=== PATIENT | male | born 1955 | race African-American/Black ===

== ENCOUNTER 2017-02-04 14:46 | Emergency (ER) | payer BC, MEDICAID ==
[~2017-02-04] VITALS: Ht 172.7 cm; Wt 90.7 kg
[~2017-02-04 14:46] MED LIST: ACETAMINOPHEN-1 EAC1 ORAL; CYCLOBENZAPRINE10 MG ORAL; IBUPROFEN600 MG ORAL
[2017-02-04] MEDS ORDERED: Methocarbamol 750mg tab ORAL ONE (15:00)
[2017-02-04] MEDS ORDERED: ROBAXIN-750750 MG PO (15:04)
--- NOTE | 2017-02-04 15:09 | Emergency Room Report ---
History of Present Illness General Chief Complaint: Lower Back Pain or Injury Source: Patient Present Illness HPI 61YOM walk-in with 4 days of left lower back strain after known exacerbating event lifting heavy suitcase at [employer] where he works Took molixicam he has at home ONCE with improvement hasnt taken any thing else since thought he was constipated, gave miralax which "cleaned him out." But still with LBP so came to ED Denies lower ext weakness, urinary/fecal incontinence No history of LBP Denies chest pain, SOB, abd pain, nausea/vomiting, dysuria, fever/chills Allergies: Coded Allergies: No Known Allergies (Verified Allergy, Unknown, 05/31/10) Patient History Past Medical History: none Past Surgical History: none Pertinent Family History: none Social History: Denies: smoking, alcohol use, drug use Immunizations: UTD Reviewed Nursing Documentation: PMH: Agreed, PSxH: Agreed Nursing Documentation-PMH Past Medical History: No History, Except For Hx Cardiac Problems: Yes - STENT X 1 IN 2010 Hx Hypertension: Yes Hx Pacemaker: No Hx Asthma: No Hx COPD: No Hx Diabetes: No Hx Cancer: No Hx Gastrointestinal Problems: No Hx Dialysis: No History Of Psychiatric Problem: No Hx Neurological Problems: No Hx Cerebrovascular Accident: No Hx Seizures: No Review of Systems All Other Systems: negative except mentioned in HPI Physical Exam Vital Signs Date Time Temp Pulse Resp B/P (MAP) Pulse Ox O2 Delivery O2 Flow Rate FiO2 02/04/17 14:49 97.0 59 16 136/90 99 Room Air Sp02 EP Interpretation: reviewed, normal General Appearance: normal inspection, well appearing, no apparent distress, alert, GCS 15, non-toxic Head: normocephalic, atraumatic Eyes: bilateral eye PERRL, bilateral eye EOMI ENT: normal ENT inspection, hearing grossly normal, normal voice Neck: normal inspection, full range of motion, supple, no bony tend Respiratory: normal inspection, lungs clear, normal breath sounds, no respiratory distress, no retraction, no wheezing Cardiovascular #1: regular rate, rhythm, no edema Gastrointestinal: normal inspection, normal bowel sounds, non tender, soft, no guarding, no hernia Genitourinary: no CVA tenderness Musculoskeletal: normal inspection, back normal, normal range of motion, Kayla' s Sign negative, other - Mild left lower paravertebral ttp Neurologic: normal inspection, alert, oriented x3, responsive, balance truing inspector III-XII nml as tested, motor strength/tone normal, speech normal Psychiatric: normal inspection, judgement/insight normal, mood/affect normal Skin: normal inspection, normal color, no rash Medical Decision Making Diagnostic Impression: Primary Impression: Low back pain Qualified Codes: M54.5 - Low back pain ER Course LBP Traumatic exacerbating event No concerning factors for cord compression VSS, afebrile Rx Robaxin to take with molaxicam Last Vital Signs Date Time Temp Pulse Resp B/P (MAP) Pulse Ox O2 Delivery O2 Flow Rate FiO2 02/04/17 14:49 97.0 59 16 136/90 99 Room Air Status: improved Disposition: HOME, SELF-CARE Condition: Improved Scripts Methocarbamol* (ROBAXIN-750*) 750 Mg Tablet 750 MG PO TID for 7 Days, #30 TAB 0 Refills Prov: ARMAAN MENDOZA M.D. 02/04/17 Referrals: [facility],REFERRING (PCP) Patient Instructions: Lumbosacral Strain Additional Instructions: - Take Robaxin with the Meloxicam you already have TOGETHER every 8 hours with food as needed for pain - Apply ice or eat as needed for pain - Stretch your back as often as you can and try to walk to keep muscles loose ARMAAN MENDOZA M.D. Feb 04, 2017 15:09
[2017-02-04] MEDS ORDERED: Ketorolac 60mg Inj IM ONE (15:15)
[2017-02-04 15:30] VITALS: BP 138/90
== END 2017-02-04 15:35 | disposition home or self-care (01) ==
LOC: EMR 15:01
DX: M54.5 Low back pain (principal); Z98.62 Peripheral vascular angioplasty status; I10 Essential (primary) hypertension
CPT/HCPCS: 96372; 99284

== ENCOUNTER 2017-02-05 19:24 | Emergency (ER) | payer MEDICAID ==
[~2017-02-05] VITALS: Ht 172.7 cm; Wt 89.8 kg
[~2017-02-05 19:24] MED LIST changes: +ROBAXIN-750750 MG PO
[2017-02-05 19:45] VITALS: BP 125/86
[2017-02-05] MEDS ORDERED: Ketorolac 60mg Inj IM ONE (20:00)
[2017-02-05 20:25] VITALS: BP 125/86
--- NOTE | 2017-02-05 20:57 | Emergency Room Report ---
History of Present Illness General Chief Complaint: Lower Back Pain or Injury Source: Patient Present Illness HPI The patient is a 61-year-old male presenting for lower back pain. He was seen in this emergency Department yesterday for the same complaint. He states that he was lifting heavy objects at work when he felt sharp pain in the left lower back 4 days prior. Pain has continued and is an 8/10 dull ache now to the left lower back. Worse with movement such as bending over. He denies any new injury. He denies any numbness or tingling. He has been using Robaxin at home and states that pain has decreased. He denies any other symptoms including Allergies: Coded Allergies: No Known Allergies (Verified Allergy, Unknown, 05/31/10) Patient History Past Medical History: see triage record Pertinent Family History: none Reviewed Nursing Documentation: PMH: Agreed, PSxH: Agreed Nursing Documentation-PMH Past Medical History: No History, Except For Hx Cardiac Problems: Yes - STENT X 1 IN 2010 Hx Hypertension: Yes Hx Pacemaker: No Hx Asthma: No Hx COPD: No Hx Diabetes: No Hx Cancer: No Hx Gastrointestinal Problems: No Hx Dialysis: No Hx Neurological Problems: No Hx Cerebrovascular Accident: No Hx Seizures: No Review of Systems All Other Systems: negative except mentioned in HPI Physical Exam Vital Signs Date Time Temp Pulse Resp B/P (MAP) Pulse Ox O2 Delivery O2 Flow Rate FiO2 02/05/17 19:34 97.9 65 17 125/86 99 Room Air Sp02 EP Interpretation: reviewed, normal General Appearance: no apparent distress, alert, GCS 15, non-toxic Head: normocephalic, atraumatic Eyes: bilateral eye normal inspection, bilateral eye PERRL Respiratory: chest non-tender, lungs clear, normal breath sounds, speaking full sentences Gastrointestinal: normal bowel sounds, non tender, soft, non-distended, no guarding, no rebound Musculoskeletal: back normal, normal range of motion, tender - TTP the L lumbar paraspinal muscles Neurologic: alert, oriented x3, responsive, motor strength/tone normal, sensory intact, speech normal Psychiatric: judgement/insight normal, memory normal, mood/affect normal, no suicidal/homicidal ideation Skin: normal color, no rash, warm/dry, well hydrated Medical Decision Making PA Attestation Dr. Queen is my supervising physician. Patient management was discussed with my supervising physician Diagnostic Impression: Primary Impression: Muscle strain ER Course The patient is a 61 yo M presenting for back pain Ddx considered include but not limited to lumbar strain, degenerative disease, epidural abscess, cauda equina, chronic pain, narcotic dependency. PE: NAD Musculoskeletal: There is tenderness with soft palpation over the left lumbar paraspinal muscles. No midline tenderness. Normal AROM Normal gait The patient is given IM Toradol and Valium and feels better He is given a work note and will use heating pad at home. He was advised to continue to use the prescription he received yesterday as directed. ER precautions given Last Vital Signs Date Time Temp Pulse Resp B/P (MAP) Pulse Ox O2 Delivery O2 Flow Rate FiO2 02/05/17 20:25 97.9 79 17 125/86 99 Room Air Status: improved Disposition: HOME, SELF-CARE Condition: Improved Patient Instructions: Back Pain, Adult Additional Instructions: I discussed my findings with the patient. All questions and concerns have been answered. Treatment and medication compliance have been addressed. I advised the patient that they need to follow up with PMD in 3-5 days. Return to ED if pain remains or worsens, numbness or tingling occurs, new rash is noticed, fever is noticed, or if needed for any reason. Patient verbalized understanding of discharge instructions. AKOSUA DE LA TORRE Feb 05, 2017 20:57
== END 2017-02-05 20:25 | disposition home or self-care (01) ==
LOC: EMR 19:45
DX: S39.012A Strain of muscle, fascia and tendon of lower back, initial encounter (principal); X50.0XXA Overexertion from strenuous movement or load, initial encounter; Y92.69 Other specified industrial and construction area as the place of occurrence of the external cause; Y99.0 Civilian activity done for income or pay; I10 Essential (primary) hypertension
CPT/HCPCS: 96372; 99283; J3360

== ENCOUNTER 2017-12-03 12:03 | Emergency (ER) | payer MEDICAID ==
[~2017-12-03] VITALS: Ht 172.7 cm; Wt 92.5 kg
[2017-12-03] MEDS ORDERED: Isovue-300 100ml vial INJ PRN (12:45)
[2017-12-03 13:00] LABS: BASOPHILS % (AUTO) 1.4 % (0.0-2.0); EOSINOPHILS % (AUTO) 4.3 % (0.0-3.0); HEMATOCRIT 46.3 % (42.0-52.0); HEMOGLOBIN 15.5 G/DL (14.2-18.0); LYMPHOCYTES % (AUTO) 33.9 % (20.0-45.0); MEAN CORPUSCULAR VOLUME 91 FL (80-99); MONOCYTES % (AUTO) 10.5 % (1.0-10.0); NEUTROPHILS % (AUTO) 49.9 % (45.0-75.0); PLATELET COUNT 230 K/UL (150-450); RED BLOOD COUNT 5.11 M/UL (4.70-6.10); RED CELL DISTRIBUTION WIDTH 11.7 % (11.6-14.8); WHITE BLOOD COUNT 5.7 K/UL (4.8-10.8)
[2017-12-03 13:04] LABS: APPEARANCE,URINE TURBID; BILIRUBIN, URINE NEGATIVE (NEGATIVE); GLUCOSE, URINE (UA) NEGATIVE (NEGATIVE); KETONES,URINE 1+ (NEGATIVE); LEUKOCYTE ESTERASE ,URINE 1+ (NEGATIVE); NITRITE,URINE NEGATIVE (NEGATIVE); PH,URINE 5 (4.5-8.0); PROTEIN,URINE 2+ (NEGATIVE); UROBILINOGEN,URINE 1 MG/DL (0.0-1.0)
[2017-12-03 13:07] LABS: COLOR,URINE YELLOW
[2017-12-03 13:08] LABS: INR 0.9 (0.9-1.1)
[2017-12-03 13:14] LABS: ANION GAP 7 mmol/L (5-15); BLOOD UREA NITROGEN 18 mg/dL (7-18); CALCIUM 9.1 MG/DL (8.5-10.1); CARBON DIOXIDE 29 MMOL/L (21-32); CHLORIDE 106 MMOL/L (98-107); CREATININE 1.1 MG/DL (0.55-1.30); POTASSIUM 4.1 MMOL/L (3.5-5.1); SODIUM 142 MMOL/L (136-145)
[2017-12-03 13:18] LABS: ALANINE AMINOTRANSFERASE 57 U/L (12-78); ALBUMIN 3.7 G/DL (3.4-5.0); ALBUMIN/GLOBULIN RATIO 0.8 (1.0-2.7); ALKALINE PHOSPHATASE 146 U/L (46-116); ASPARTATE AMINO TRANSFERASE 39 U/L (15-37); BILIRUBIN,TOTAL 0.5 MG/DL (0.2-1.0)
[2017-12-03 13:32] VITALS: BP 123/82
--- NOTE | 2017-12-03 13:44 | Emergency Room Report ---
History of Present Illness General Chief Complaint: Gastrointestinal Bleed Source: Patient Present Illness [facility] This patient states that today after a bowel movement he noticed bright red blood. He denies abdominal pain. He denies rectal pain. He denies fever or chills. He denies diarrhea. He denies nausea or vomiting. He has no other complaints. He did get a colonoscopy last year that was normal. Allergies: Coded Allergies: No Known Allergies (Verified Allergy, Unknown, 05/31/10) Patient History Past Medical History: see triage record, HTN, AK, CAD, other - BPH Social History: Denies: smoking, alcohol use, drug use Reviewed Nursing Documentation: PMH: Agreed; PSxH: Agreed Nursing Documentation-PMH Hx Cardiac Problems: Yes - STENT X 1 IN 2010 Hx Hypertension: Yes Hx Pacemaker: No - HYPERLIPIDEMIA Hx Asthma: No Hx COPD: No Hx Diabetes: No Hx Cancer: No Hx Gastrointestinal Problems: No Hx Dialysis: No Hx Neurological Problems: No Hx Cerebrovascular Accident: No Hx Seizures: No Review of Systems All Other Systems: negative except mentioned in HPI Physical Exam Vital Signs Date Time Temp Pulse Resp B/P (MAP) Pulse Ox O2 Delivery O2 Flow Rate FiO2 12/03/17 12:23 97.9 57 14 129/91 97 Room Air 97.9 Sp02 EP Interpretation: reviewed, normal General Appearance: no apparent distress, alert, GCS 15, non-toxic Head: normocephalic, atraumatic Eyes: bilateral eye normal inspection, bilateral eye PERRL ENT: hearing grossly normal, normal pharynx, no angioedema, normal voice Neck: full range of motion, supple/symm/no masses Respiratory: chest non-tender, lungs clear, normal breath sounds, no respiratory distress, no retraction, no accessory muscle use, speaking full sentences Cardiovascular #1: regular rate, rhythm, no edema Gastrointestinal: normal bowel sounds, non tender, soft, non-distended, no guarding, no rebound Rectal: hemorrhoids, other - Brown stool. No blood. Musculoskeletal: back normal, gait/station normal, normal range of motion, non- tender Neurologic: alert, oriented x3, responsive, motor strength/tone normal, sensory intact, speech normal Psychiatric: judgement/insight normal, memory normal, mood/affect normal, no suicidal/homicidal ideation Skin: normal color, no rash, warm/dry, well hydrated Medical Decision Making Diagnostic Impression: Primary Impression: Acute hemorrhoid ER Course This patient has hemorrhoids on rectal exam. He is not actively bleeding. The patient CT abd/pelvis is unremarkable. The patient's laboratory workup to include hemoglobin and hematocrit is within normal limits. The patient is nontoxic and well-appearing. Also reassuring, is that this patient had a normal colonoscopy last year. At this time, I did not identify an emergency medical condition. The patient's given return precautions and follow-up instructions. Laboratory Tests Test 12/03/17 12:45 White Blood Count 5.7 K/UL (4.8-10.8) Red Blood Count 5.11 M/UL (4.70-6.10) Hemoglobin 15.5 G/DL (14.2-18.0) Hematocrit 46.3 % (42.0-52.0) Mean Corpuscular Volume 91 FL (80-99) Mean Corpuscular Hemoglobin 30.3 PG (27.0-31.0) Mean Corpuscular Hemoglobin Concent 33.4 G/DL (32.0-36.0) Red Cell Distribution Width 11.7 % (11.6-14.8) Platelet Count 230 K/UL (150-450) Mean Platelet Volume 8.7 FL (6.5-10.1) Neutrophils (%) (Auto) 49.9 % (45.0-75.0) Lymphocytes (%) (Auto) 33.9 % (20.0-45.0) Monocytes (%) (Auto) 10.5 % (1.0-10.0) H Eosinophils (%) (Auto) 4.3 % (0.0-3.0) H Basophils (%) (Auto) 1.4 % (0.0-2.0) Prothrombin Time 10.0 SEC (9.30-11.50) Prothrombin Time INR 0.9 (0.9-1.1) PTT 26 SEC (23-33) Urine Color Yellow Urine Appearance Turbid Urine pH 5 (4.5-8.0) Urine Specific [place] 1.025 (1.005-1.035) Urine Protein 2+ (NEGATIVE) H Urine Glucose (UA) Negative (NEGATIVE) Urine Ketones 1+ (NEGATIVE) H Urine Occult Blood Negative (NEGATIVE) Urine Nitrite Negative (NEGATIVE) Urine Bilirubin Negative (NEGATIVE) Urine Urobilinogen 1 MG/DL (0.0-1.0) H Urine Leukocyte Esterase 1+ (NEGATIVE) H Urine RBC 0-2 /HPF (0 - 0) H Urine WBC 2-4 /HPF (0 - 0) Urine Squamous Epithelial Cells Occasional /LPF Urine Bacteria Few /HPF (NONE) Urine Mucus Moderate /LPF (NONE/OCC) H Sodium Level 142 MMOL/L (136-145) Potassium Level 4.1 MMOL/L (3.5-5.1) Chloride Level 106 MMOL/L (98-107) Carbon Dioxide Level 29 MMOL/L (21-32) Anion Gap 7 mmol/L (5-15) Blood Urea Nitrogen 18 mg/dL (7-18) Creatinine 1.1 MG/DL (0.55-1.30) Estimate Glomerular Filtration Rate > 60 mL/min (>60) Glucose Level 84 MG/DL (74-106) Calcium Level 9.1 MG/DL (8.5-10.1) Total Bilirubin 0.5 MG/DL (0.2-1.0) Aspartate Amino Transferase (AST) 39 U/L (15-37) H Alanine Aminotransferase (ALT) 57 U/L (12-78) Alkaline Phosphatase 146 U/L (46-116) H Total Protein 8.2 G/DL (6.4-8.2) Albumin 3.7 G/DL (3.4-5.0) Globulin 4.5 g/dL Albumin/Globulin Ratio 0.8 (1.0-2.7) L CT/MRI/US Diagnostic Results CT/MRI/US Diagnostic Results : Imaging Test Ordered: CT abd/pelvis Impression Impression: No definite acute abnormality 5 mm nonobstructive right lower pole renal calyceal calculus Incidental findings of right renal cyst, tiny fat-containing umbilical hernia Last Vital Signs Date Time Temp Pulse Resp B/P (MAP) Pulse Ox O2 Delivery O2 Flow Rate FiO2 12/03/17 13:32 97.9 53 9 123/82 98 Room Air 97.9 Status: improved Disposition: HOME, SELF-CARE Condition: Improved Referrals: [facility]INDY PRIETO (PCP) Naheed Olmedo DO Dec 03, 2017 13:44
--- NOTE | 2017-12-03 14:30 | Diagnostic Imaging Report ---
Clinical Indication: Abdominal pain in right lower quadrant Technique: No oral contrast utilized, per emergency room physician request IV administration nonionic contrast. Venous phase spiral acquisition obtained through the abdomen and pelvis. Multiplanar reconstructions were generated. Total dose length product 826.44 mGycm. CTDIvol(s) 15.7 mGy. Dose reduction achieved using automated exposure control Comparison: none Findings: Lack of enteric contrast limits assessment of the GI tract. The appendix is normal. There are a few prominent pericecal lymph nodes present. No evidence of diverticulosis or diverticulitis. No small bowel distention. No free or loculated intraperitoneal air or fluid. There is a tiny fat-containing umbilical hernia. The liver, gallbladder, bile ducts, pancreas, spleen, adrenals are unremarkable. The right kidney demonstrates a 5 mm lower pole calyceal calculus. It also demonstrates a 3 cm upper pole cyst. No retroperitoneal or mesenteric mass or adenopathy. No pelvic mass or adenopathy. Included lung bases are clear. The bones demonstrate degenerative spondylosis changes. Impression: No definite acute abnormality 5 mm nonobstructive right lower pole renal calyceal calculus Incidental findings of right renal cyst, tiny fat-containing umbilical hernia The CT scanner at [facility] is accredited by the [employer] and the scans are performed using protocols designed to limit radiation exposure to as low as reasonably achievable to attain images of sufficient resolution adequate for diagnostic evaluation.
[2017-12-03] MEDS ORDERED: ANUSOL-HC25 MG RECTAL (16:00)
[2017-12-03 16:08] VITALS: BP 128/85
[2017-12-03 16:30] VITALS: BP 129/70
== END 2017-12-03 16:30 | disposition home or self-care (01) ==
LOC: EMR 12:47
DX: K64.9 Unspecified hemorrhoids (principal); I10 Essential (primary) hypertension; I25.2 Old myocardial infarction; E78.5 Hyperlipidemia, unspecified; I25.10 Atherosclerotic heart disease of native coronary artery without angina pectoris; K80.50 Calculus of bile duct without cholangitis or cholecystitis without obstruction; N28.1 Cyst of kidney, acquired; K42.9 Umbilical hernia without obstruction or gangrene
CPT/HCPCS: 36415; 74177; 80053; 81003; 85025; 85610; 85730; 99284; Q9967

== ENCOUNTER 2018-04-28 13:46 | Emergency (ER) | payer BC, MEDICAID ==
[~2018-04-28] VITALS: Ht 172.7 cm; Wt 108.9 kg
[~2018-04-28 13:46] MED LIST changes: +ANUSOL-HC25 MG RECTAL
--- NOTE | 2018-04-28 14:16 | Emergency Room Report ---
History of Present Illness General Chief Complaint: Toothache Source: Patient Present Illness HPI 62-year-old male patient presents the ER complaining of left upper toothache for the past 3 days. Patient reports pain and swelling at site of tooth. States that he did salt water gargles yesterday which helped with the swelling symptoms. Reports feeling warm at home, denies chills. Patient afebrile in the ER currently. Patient reports that he did not go to the dentist because he has not gotten paid and cannot afford to go to the dentist yet. Patient denies chest pain, shortness of breath, vomiting. Denies bleeding from site of tooth injury. Reports history of tooth problems in the past. Allergies: Coded Allergies: No Known Allergies (Verified Allergy, Unknown, 05/31/10) Patient History Past Medical History: see triage record Reviewed Nursing Documentation: PMH: Agreed; PSxH: Agreed Nursing Documentation-PMH Past Medical History: No History, Except For Hx Cardiac Problems: Yes - STENT X 1 IN 2010 Hx Hypertension: Yes Hx Pacemaker: No - HYPERLIPIDEMIA Hx Asthma: No Hx COPD: No Hx Diabetes: No Hx Cancer: No Hx Gastrointestinal Problems: No Hx Dialysis: No Hx Neurological Problems: No Hx Cerebrovascular Accident: No Hx Seizures: No Review of Systems All Other Systems: negative except mentioned in HPI Physical Exam Vital Signs Date Time Temp Pulse Resp B/P (MAP) Pulse Ox O2 Delivery O2 Flow Rate FiO2 04/28/18 14:01 98.1 84 17 135/96 98 Room Air Sp02 EP Interpretation: reviewed, normal General Appearance: well appearing, no apparent distress, alert, GCS 15, non- toxic Head: normocephalic, atraumatic Eyes: bilateral eye normal inspection, bilateral eye PERRL ENT: hearing grossly normal, normal pharynx, no angioedema, normal voice, uvula midline, moist mucus membranes, other - Oral cavity: Left upper gum shows impacted tooth, TTP, no palpable mass, no flutuance or induration; multiple missing teeth, mildly erythematous gums; no surrounding facial erythema or edema Neck: full range of motion Respiratory: lungs clear, normal breath sounds, no rhonchi, no respiratory distress, no accessory muscle use, no wheezing, speaking full sentences Cardiovascular #1: regular rate, rhythm, no edema Musculoskeletal: back normal, digits/nails normal, gait/station normal, normal range of motion, non-tender Neurologic: alert, oriented x3, responsive, motor strength/tone normal, sensory intact Medical Decision Making PA Attestation Dr. Huffman is my supervising Physician whom patient management has been discussed with. Diagnostic Impression: Primary Impression: Tooth infection ER Course pt. presents to the ED c/o dental pain. Ddx considered but are not limited to cellulitis, abscess, dental caries, gingivitis. Does not require imaging at this time. Vital signs: are WNL, pt. is afebrile ED INTERVENTIONS: Tylenol #3 medication provided in the ER. Nontoxic appearing, speaking full sentences, no active draining, mild edema, no trismus or vision changes. No signs of abscess, no fluctuance, erythema or edema. No signs of cellulitis, no erythema or edema of skin of overlying maxillary bone or face. follow-up with dentist. Will provide abx for infection to cover for possible infection. provided with contact information for dentists. F/u with PCP and dentist for further treatment. DISCHARGE: Rx provided for Tylenol #3. SE drowsiness, do not take prior to drinking, driving, operating heavy machinery. Rx provided for Augmentin At this time pt. is stable for d/c to home. Patient is resting comfortably, in no acute distress, nontoxic appearing, talking and smiling without difficulty. Will provide printed patient care instructions and any necessary prescriptions. Care plan and follow up instructions have been discussed with the patient prior to discharge. Patient instructed to follow-up with primary care provider in 2 - 3 days. Followup with dentist. Patient questions asked and answered. Patient reports understanding and agreement to treatment plan. ER precautions given. Patient instructed to return to ER immediately for any new or worsening of symptoms including but not limited to fever, worsening of pain symptoms, worsening of erythema, red streaking. - Please note that this Emergency Department Report was dictated using [employer] software, occasionally this can lead to erroneous entry secondary to interpretation by the dictation equipment. Last Vital Signs Date Time Temp Pulse Resp B/P (MAP) Pulse Ox O2 Delivery O2 Flow Rate FiO2 04/28/18 14:01 98.1 84 17 135/96 98 Room Air Disposition: HOME, SELF-CARE Condition: Stable Scripts Acetaminophen With Codeine (T#3) (TYLENOL #3 TAB*) Y Tab 1 TAB ORAL Q6HR PRN for For Pain, #10 TAB Prov: Hema Price 04/28/18 Amoxicillin/Potassium Clav 875-125* (AUGMENTIN 875-125 TABLET*) 1 Each Tablet 1 TAB ORAL TWICE A DAY, #14 TAB Prov: Hema Price 04/28/18 Patient Instructions: Dental Pain Additional Instructions: Followup with dentist in 2-3 days. Followup with primary care provider in 3 -5 days. Take medications as directed. Patient questions asked and answered. ER precautions given, patient instructed to return to ER immediately for any new or worsening of symptoms. Hema Price Apr 28, 2018 14:16
[2018-04-28] MEDS ORDERED: Tylenol #3 tab (300mg/30mg) ORAL ONE (14:30)
[2018-04-28] MEDS ORDERED: ACETAMINOPHEN-1 EAC1 ORAL (14:40)
[2018-04-28] MEDS ORDERED: AUGMENTIN 875-1 EAC1 ORAL (14:40)
[2018-04-28 14:47] VITALS: BP 129/82
[2018-04-28 14:48] VITALS: BP 135/96
[2018-04-28] MEDS ORDERED: UNOBMED (14:52)
== END 2018-04-28 14:48 | disposition home or self-care (01) ==
LOC: EMR 14:21
DX: K04.7 Periapical abscess without sinus (principal); I10 Essential (primary) hypertension; E78.5 Hyperlipidemia, unspecified
CPT/HCPCS: 99283

== ENCOUNTER 2018-06-05 10:37 | Emergency (ER) | payer BC ==
[~2018-06-05] VITALS: Ht 172.7 cm; Wt 88.0 kg
[~2018-06-05 10:37] MED LIST changes: +AUGMENTIN 875-1 EAC1 ORAL; +UNOBMED
--- NOTE | 2018-06-05 10:46 | NUR ---
ED Nurse Note: Pt came into the ER w/ complaints of tootache since yesterday. Pt states that the right cheek swelling occurred yesterday. Complaining of 6/10 tooth pain. Pt states that he was in this hospital around [place] time 2018 for the same problem. Hasn't seen the dentist due to dentist being unavailable. A + O x4. Ambulatory. Skin warm to touch.
[2018-06-05 10:48] VITALS: BP 120/95
[2018-06-05] MEDS ORDERED: Clindamycin 600mg 50 ML IVPB ONE (11:00)
[2018-06-05] MEDS ORDERED: Tylenol #3 tab (300mg/30mg) ORAL ONE (11:00)
[2018-06-05] MEDS ORDERED: ACETAMINOPHEN-1 EAC1 ORAL (11:02)
[2018-06-05] MEDS ORDERED: CLINDAMYCIN HC300 MG ORAL (11:02)
[2018-06-05] MEDS ORDERED: PERIDEX15 ML MM (11:02)
--- NOTE | 2018-06-05 11:08 | Emergency Room Report ---
History of Present Illness General Chief Complaint: Toothache Source: Patient Present Illness HPI Patient presents emergency department today complaining of left upper dental pain and facial swelling. Patient denies any difficulty swallowing. Patient was diagnosed with dental abscess put on antibiotics symptoms improved. He was supposed to follow-up with a dentist but has been unable to do so. Since then he's had worsening pain and swelling in his left maxillary area since yesterday. He denies any difficulty swallowing denies any fever. No other complaints were noted. Symptoms noted to be moderate. This is similar to his prior episode.No other modifying factors. No other associated signs and symptoms. No other complaints were noted. Allergies: Coded Allergies: No Known Allergies (Verified Allergy, Unknown, 05/31/10) Patient History Past Medical History: HTN, CAD Past Surgical History: none Pertinent Family History: none Social History: Denies: smoking, alcohol use, drug use Reviewed Nursing Documentation: PMH: Agreed; PSxH: Agreed Nursing Documentation-PMH Hx Cardiac Problems: Yes - STENT X 1 IN 2010 Hx Hypertension: Yes Hx Pacemaker: No - HYPERLIPIDEMIA Hx Asthma: No Hx COPD: No Hx Diabetes: No Hx Cancer: No Hx Gastrointestinal Problems: No Hx Dialysis: No Hx Neurological Problems: No Hx Cerebrovascular Accident: No Hx Seizures: No Review of Systems All Other Systems: negative except mentioned in HPI Physical Exam Vital Signs Date Time Temp Pulse Resp B/P (MAP) Pulse Ox O2 Delivery O2 Flow Rate FiO2 06/05/18 10:42 98.2 99 19 124/93 99 Room Air Sp02 EP Interpretation: reviewed, normal General Appearance: normal inspection, well appearing, no apparent distress, alert Head: atraumatic Eyes: bilateral eye normal inspection ENT: hearing grossly normal, normal voice, other - Left maxillary swelling Neck: normal inspection, full range of motion, supple, no bony tend Respiratory: normal inspection, lungs clear, normal breath sounds, no respiratory distress, no retraction, no wheezing Cardiovascular #1: regular rate, rhythm, no edema Gastrointestinal: normal inspection, normal bowel sounds, non tender, soft, no guarding, no hernia Genitourinary: no CVA tenderness Musculoskeletal: normal inspection, back normal, normal range of motion Neurologic: normal inspection, alert, responsive, speech normal Psychiatric: normal inspection, judgement/insight normal, mood/affect normal Skin: normal inspection, normal color, no rash Medical Decision Making Diagnostic Impression: Primary Impression: Dental abscess ER Course Patient presents emergency department today complaint left-sided facial swelling. Differential considerations include infectious process, abscess, allergic reaction. Patient's exam is consistent with dental abscess. I felt the patient would benefit from antibiotics. Patient was started on clindamycin and given a prescription for clindamycin. Patient was also given Tylenol 3 for pain as well as blurred x-rays. 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 Patient was given work time off. Patient was advised follow with dentistry or oral surgery. Patient voiced understanding states that he has an appointment.Patient is advised to follow up with primary doctor in 2-3 days and return the emergency room for any worsening symptoms and as needed. Last Vital Signs Date Time Temp Pulse Resp B/P (MAP) Pulse Ox O2 Delivery O2 Flow Rate FiO2 06/05/18 10:48 98.0 78 22 120/95 98 Room Air Status: unchanged Disposition: HOME, SELF-CARE Condition: Stable Scripts Chlorhexidine Gluconate (Peridex) 15 Ml Mouthwash 15 ML MM BID for 10 Days, ML Prov: Michael Houston MD 06/05/18 Acetaminophen With Codeine (T#3) (TYLENOL #3 TAB*) Y Tab 2 TAB ORAL Q6H PRN for For Pain, #20 TAB Prov: Michael Houston MD 06/05/18 Clindamycin Hcl (CLINDAMYCIN HCL) 300 Mg Capsule 300 MG ORAL FOUR TIMES A DAY for 7 Days, CAP Prov: Michael Houston MD 06/05/18 Patient Instructions: Dental Abscess, Aaso-an-Hrev Michael Houston MD Jun 05, 2018 11:08
[2018-06-05 11:39] VITALS: BP 125/74
--- NOTE | 2018-06-05 11:40 | NUR ---
ED Nurse Note: Discharge instructions given to pt. Answered all questions. Verbalized understanding. No acute distress noted. ID band and IV site removed. Left ER w/ all belongings and w/ a steady gait.
== END 2018-06-05 11:38 | disposition home or self-care (01) ==
LOC: EMR 11:07
DX: K04.7 Periapical abscess without sinus (principal); I10 Essential (primary) hypertension; I25.10 Atherosclerotic heart disease of native coronary artery without angina pectoris; E78.5 Hyperlipidemia, unspecified
CPT/HCPCS: 96365; 99282; 99284; S0077

== ENCOUNTER 2019-07-01 13:58 | Emergency (ER) | payer BC ==
[~2019-07-01] VITALS: Ht 172.7 cm; Wt 88.0 kg
[~2019-07-01 13:58] MED LIST changes: +CLINDAMYCIN HC300 MG ORAL; +PERIDEX15 ML MM
--- NOTE | 2019-07-01 14:20 | NUR ---
ED Nurse Note: Pt walked into ED w/ c/o cough, congestion, ZUNIGA, body aches for 4 days. Pt lungs are clear to auscultation. Pt works at [employer] and states he hasn't been wearing a mask. Pt is alert and orientedx4, ambulatory. Pt is present.
[2019-07-01 14:21] VITALS: BP 141/90
[2019-07-01] MEDS: Albuterol/Ipratropium 3ml neb HHN SCH (14:38)
--- NOTE | 2019-07-01 15:04 | Emergency Room Report ---
History of Present Illness General Chief Complaint: Upper Respiratory Illness Present Illness HPI 63-year-old male with history of heavy tobacco smoke, stent placement, heart failure and hypertension currently controlled here complaining of 4 days of cough and congestion. Patient reports that he has phlegm production describing as yellow. Complains of occasional wheezing. Patient reports that he works at [employer] and is exposed to a lot of cough and congestion. Denies any recent travel, fever chills, body aches. Denies abdominal pain, nausea vomiting. Has not taken any medication for symptom relief. Patient is atenolol, lisinopril, atorvastatin, Spiriva. Has history of COPD. Up-to-date with all immunizations. Denies chest pain, pain radiation, shortness of breath, headache and dizziness at this time. Wheezing is auscultated diffusely. Allergies: Coded Allergies: No Known Allergies (Verified Allergy, Unknown, 05/31/10) Patient History Past Medical History: see triage record Past Surgical History: none Pertinent Family History: none Social History: Reports: smoking - History of tobacco smoke Immunizations: UTD Reviewed Nursing Documentation: PMH: Agreed; PSxH: Agreed Nursing Documentation-PMH Hx Cardiac Problems: Yes - STENT X 1 IN 2010 Hx Hypertension: Yes Hx Pacemaker: No - HYPERLIPIDEMIA Hx Asthma: No Hx COPD: No Hx Diabetes: No Hx Cancer: No Hx Gastrointestinal Problems: No Hx Dialysis: No Hx Neurological Problems: No Hx Cerebrovascular Accident: No Hx Seizures: No Review of Systems All Other Systems: negative except mentioned in HPI Physical Exam Vital Signs Date Time Temp Pulse Resp B/P (MAP) Pulse Ox O2 Delivery O2 Flow Rate FiO2 07/01/19 14:02 99.0 83 18 145/93 (110) 95 Room Air 07/01/19 14:21 99 Sp02 EP Interpretation: reviewed, normal General Appearance: no apparent distress, alert, GCS 15, non-toxic Head: normocephalic, atraumatic Eyes: bilateral eye normal inspection, bilateral eye PERRL ENT: hearing grossly normal, normal pharynx, no angioedema, normal voice Neck: full range of motion, supple, no meningismus, no bony tend, supple/symm/ no masses Respiratory: chest non-tender, lungs clear, normal breath sounds, no rhonchi, no respiratory distress, no retraction, no accessory muscle use, speaking full sentences, wheezing Cardiovascular #1: regular rate, rhythm, no edema, no murmur Gastrointestinal: non tender, soft Rectal: deferred Genitourinary: no CVA tenderness Musculoskeletal: back normal, no calf tenderness Neurologic: alert, motor strength/tone normal, oriented x3, sensory intact, responsive, speech normal Psychiatric: judgement/insight normal, memory normal, mood/affect normal, no suicidal/homicidal ideation Skin: no rash Lymphatic: no adenopathy Medical Decision Making PA Attestation All diagnoses and treatment plans were reviewed and discussed with my supervising physician Dr. Hawkins Diagnostic Impression: Primary Impression: Pneumonitis ER Course 63-year-old male with history of heavy tobacco smoke, stent placement, heart failure and hypertension currently controlled here complaining of 4 days of cough and congestion. Patient reports that he has phlegm production describing as yellow. Complains of occasional wheezing. Patient reports that he works at [employer] and is exposed to a lot of cough and congestion. Denies any recent travel, fever chills, body aches. Denies abdominal pain, nausea vomiting. Has not taken any medication for symptom relief. Patient is atenolol, lisinopril, atorvastatin, Spiriva. Has history of COPD. Up-to-date with all immunizations. Denies chest pain, pain radiation, shortness of breath, headache and dizziness at this time. Wheezing is auscultated diffusely. Ddx considered but are not limited to: bronchitis, PNA, URI viral, bacterial bronchitis, pneumonitis Vital signs: are WNL, pt. is afebrile H&PE are most consistent with: Pneumonitis ORDERS: Chest x-ray, Augmentin, albuterol, prednisone, guaifenesin, ED INTERVENTIONS: Prednisone, 3 treatments of albuterol ipratropium nebulizer DISCHARGE: At this time pt. is stable for d/c to home. Will provide printed patient care instructions, and any necessary prescriptions. Care plan and follow up instructions have been discussed with the patient prior to discharge. Patient to follow-up with primary care provider, take medication as directed, increase oral hydration, if worsening symptoms return to the emergency room also use albuterol inhaler only if wheezing as patient is taking atenolol and not advised to be under her daily treatment of albuterol when taking atenolol. Chest X-Ray Diagnostic Results Chest X-Ray Diagnostic Results : Chest X-Ray Ordered: Yes # of Views/Limited/Complete: 1 View Indication: Other - Cough EP Interpretation: Yes PA Xray: Interpretation reviewed, by supervising MD, and agrees with findings. Interpretation: no consolidation, no effusion, no pneumothorax Last Vital Signs Date Time Temp Pulse Resp B/P (MAP) Pulse Ox O2 Delivery O2 Flow Rate FiO2 07/01/19 14:21 87 20 Room Air 99 07/01/19 14:21 99.0 141/90 99 Status: improved Disposition: HOME, SELF-CARE Condition: Stable Scripts Albuterol Sulfate (VENTOLIN HFA) 18 Gm Hfa.aer.ad 2 PUFFS INH EVERY 6 HOURS, #18 GM 0 Refills Prov: Nicolette Lan 07/01/19 Prednisone* (PREDNISONE*) 20 Mg Tablet 40 MG ORAL DAILY for 5 Days, #10 TAB Prov: Nicolette Lan 07/01/19 Guaifenesin* (GUAIFENESIN*) 100 Mg/5 Ml Liquid 5 ML ORAL Q6H, #120 ML 0 Refills Prov: Nicolette Lan 07/01/19 Amoxicillin/Potassium Clav 875-125* (AUGMENTIN 875-125 TABLET*) 1 Each Tablet 1 TAB ORAL TWICE A DAY for 10 Days, #20 TAB Prov: Nicolette Lan 07/01/19 Patient Instructions: Pneumonitis Additional Instructions: Take medication as directed, follow-up with your primary care provider, increase oral hydration, if worsening symptoms return to the emergency room Nicolette Lan Jul 01, 2019 15:04
[2019-07-01] MEDS ORDERED: GUAIFENESI100 MG/5 M ORAL (15:05)
[2019-07-01] MEDS ORDERED: AUGMENTIN 875-1 EAC1 ORAL (15:05)
[2019-07-01] MEDS ORDERED: VENTOLIN HFA18 GM INH (15:05)
[2019-07-01] MEDS ORDERED: PREDNISONE20 MG ORAL (15:05)
--- NOTE | 2019-07-01 15:30 | NUR ---
ED Nurse Note: Per THUY Will, pt already given albuterol. Ok to discharge.
--- NOTE | 2019-07-01 15:38 | NUR ---
ER DISCHARGE NOTE: Patient is cleared to be discharged per ERMD, pt is aox4, on room air, with stable vital signs. pt was given dc and prescription instructions, pt was able to verbalize understanding, pt id band removed. pt is able to ambulate with steady gait. pt took all belongings. Pt educated regarding prescription.
[2019-07-01 15:39] VITALS: BP 136/82
--- NOTE | 2019-07-01 17:19 | Diagnostic Imaging Report ---
EXAM: XR Chest, 1 View CLINICAL HISTORY: COUGH TECHNIQUE: Frontal view of the chest. COMPARISON: Chest radiograph on 04/22/2016 FINDINGS: Hardware: None. Lungs/pleura: Similar eventration of the right hemidiaphragm. No focal consolidation. No pleural effusion or pneumothorax. Heart/mediastinum: Normal. No cardiomegaly. Soft tissues: Unremarkable. Bones: No acute fracture. Degenerative changes of the spine. Upper abdomen: Normal. IMPRESSION: No acute disease identified.
== END 2019-07-01 15:39 | disposition home or self-care (01) ==
LOC: EMR 15:12
DX: J18.9 Pneumonia, unspecified organism (principal); E78.5 Hyperlipidemia, unspecified; Z95.5 Presence of coronary angioplasty implant and graft; F17.200 Nicotine dependence, unspecified, uncomplicated; I11.0 Hypertensive heart disease with heart failure; I50.9 Heart failure, unspecified
CPT/HCPCS: 71045; 94640; 99283; J7512; J7620